=== PATIENT | male | born 1945 | race Two or more races ===

== ENCOUNTER 2020-08-03 07:11 | Inpatient (IN) | payer OTHER ==
[~2020-08-03] VITALS: Ht 162.6 cm; Wt 86.0 kg
[2020-08-03 07:51] LABS: Albumin 3.4 g/dL (3.4-5.0); Anion Gap 10 (5-15); Calcium 7.3 mg/dL (8.5-10.1); Carbon Dioxide 15 mmol/L (21-32); Chloride 113 mmol/L (98-107); Glucose 109 mg/dL (74-106); Potassium 5.5 mmol/L (3.5-5.1); Sodium 138 mmol/L (136-145)
[2020-08-03 07:56] LABS: Alanine Aminotransferase 40 U/L (16-61); Alkaline Phosphatase 73 U/L (45-117); Aspartate Aminotransferase 19 U/L (15-37); BUN/Creatinine Ratio 12.9; Basophils # (auto) 0 10 ^3/uL (0-0.2); Basophils % (auto) 0.6 % (0.0-2.0); Bilirubin, Total 0.2 mg/dL (0.2-1.0); Eosinophils # (auto) 0.1 10 ^3/uL (0-0.8); Eosinophils % (auto) 2.6 % (0.0-7.0); GFR African American 9 mL/min; GFR Non-African American 8 mL/min; Hematocrit 31.3 % (41.0-53.0); Hemoglobin 10.9 g/dL (13.5-17.5); Lymphocytes # (auto) 1.4 10 ^3/uL (0.4-5.4); Lymphocytes % (auto) 28.9 % (10.0-50.0); Mean Corpuscular Hemoglobin 30.8 pg (28.0-32.0); Mean Corpuscular Volume 88.2 fL (80.0-100.0); Monocytes # (auto) 0.3 10 ^3/uL (0-1.3); Monocytes % (auto) 5.7 % (0.0-12.0); Neutrophils # (auto) 3.1 10 ^3/uL (1.6-8.6); Neutrophils % (auto) 62.2 % (37.0-80.0); Nucleated Red Blood Cells % 0.1 %; Platelet Count (auto) 179 10^3/uL (140-450); Red Blood Cells 3.55 10^6/uL (4.5-5.90); Red Cell Distribution Width 15.3 % (11.8-14.3); Total Protein 6.6 g/dL (6.4-8.2)
[2020-08-03 08:11] LABS: Blood Urea Nitrogen 95 mg/dL (7-18)
[2020-08-03] MEDS ORDERED: SODIUM ZIRCONIUM CYCL 10 GM PAK PO ONE (09:15)
[2020-08-03] MEDS ORDERED: MORPHINE SULF INJ 2 MG/ML SYRINGE 1ML IV PRN (09:15)
[2020-08-03] MEDS ORDERED: ALBUTEROL SULF 2.5 MG/0.5ML(0.5%) NEB SOLN NEB ONE (09:15)
[2020-08-03] MEDS ORDERED: DEXTROSE (50%) 50ML SYRG IV ONE (09:15)
[2020-08-03] MEDS ORDERED: InsuLIN REG 1unit/0.01ml Soln (100units/ml) IV ONE (09:15)
[2020-08-03] MEDS ORDERED: CALCIUM GLUC 1,000mg/50ml-NS 50 ML IV ONE (09:15)
[2020-08-03] MEDS ORDERED: FUROSEMIDE 20 MG/2 ML VIAL IV ONE (09:15)
[2020-08-03] MEDS ORDERED: SODIUM BICARBONATE 8.4% INJ 50ML SYRINGE IV ONE (09:15)
[2020-08-03] MEDS ORDERED: NITROGLYCERIN 0.4 MG SL TAB SL PRN (09:15)
[2020-08-03] MEDS ORDERED: ACETAMINOPHEN 500 MG TAB PO PRN (09:30)
[2020-08-03] MEDS ORDERED: hydrALAZINE HCL 20 MG/ML VL IV ONE (09:30)
[2020-08-03] MEDS ORDERED: DEXTROSE (50%) 50ML SYRG IV PRN (09:30)
[2020-08-03] MEDS ORDERED: hydrALAZINE HCL 20 MG/ML VL IV PRN (09:30)
[2020-08-03] MEDS ORDERED: TEMAZEPAM 15 MG CAP PO PRN (09:30)
[2020-08-03] MEDS: SODIUM CHLORIDE 0.9% 1,000 ML IV SCH ×2 (09:54→18:11)
[2020-08-03] MEDS ORDERED: FAMOTIDINE 20 MG TAB PO SCH ×2 (10:00)
[2020-08-03] MEDS: MORPHINE SULF INJ 2 MG/ML SYRINGE 1ML IV PRN (10:04)
[2020-08-03] MEDS: ONDANSETRON HCL 4 MG/2 ML VIAL IV PRN ×2 (10:04→21:27)
[2020-08-03 10:19] LABS: Urine Bacteria NONE SEEN /hpf (None Seen); Urine Blood 2+ /uL (Negative); Urine Hyaline Cast FEW /lpf (0 - 2); Urine Specific Gravity 1.013 (1.001-1.035); Urine WBC 1 /hpf (0 - 3)
[2020-08-03 11:32] LABS: Calcium 7.7 mg/dL (8.5-10.1)
[2020-08-03 11:34] LABS: BUN/Creatinine Ratio 12.3
[2020-08-03] MEDS ORDERED: ENOXAPARIN SOD 80 MG/0.8ML SYRINGE SC ONE (11:45)
[2020-08-03] MEDS ORDERED: ASPirin 81 mg TAB PO ONE (11:45)
[2020-08-03] MEDS: ACCU-CHEK COMFORT CURVE STRIP VI SCH ×3 (11:47→22:52)
[2020-08-03] MEDS ORDERED: NITROGLYCERIN 0.2MG/HR TOPICAL PATCH TD ONE (13:30)
[2020-08-03] MEDS: traMADol HCL 50 MG TAB PO PRN (15:08)
[2020-08-03 16:46] VITALS: BP 185/74
[2020-08-03 17:00] VITALS: BP 185/74
[2020-08-03] MEDS ORDERED: LEV88T PO (17:01)
[2020-08-03] MEDS ORDERED: SODI650T PO (17:01)
[2020-08-03] MEDS ORDERED: TERA5CAP PO (17:01)
[2020-08-03] MEDS ORDERED: PITA4TAB PO (17:01)
[2020-08-03] MEDS ORDERED: ISOS1TAB37 PO (17:01)
[2020-08-03] MEDS ORDERED: LOSA-69 PO (17:01)
[2020-08-03] MEDS ORDERED: NIFE90TA49 (17:01)
[2020-08-03] MEDS ORDERED: ASPI-231 PO (17:06)
[2020-08-03] MEDS: ISOSORBIDE DINITRATE 10 MG TAB PO SCH (17:38)
[2020-08-03] MEDS ORDERED: hydrALAZINE HCL 25 MG TAB PO PRN (17:45)
[2020-08-03] MEDS: ATORVASTATIN 20 MG TAB PO SCH (21:27)
[2020-08-03] MEDS: METOPROLOL TARTRATE 50 MG TAB PO SCH (21:28)
[2020-08-03 22:00] VITALS: BP 185/67
[2020-08-03] MEDS ORDERED: METOPROLOL TARTRATE 25 MG TAB PO SCH (22:00)
[2020-08-03 22:34] LABS: Protein, Urine 440.6 mg/dL (0.0-11.9)
[2020-08-04] MEDS: hydrALAZINE HCL 20 MG/ML VL IV PRN ×3 (02:34→17:42)
[2020-08-04 05:00] VITALS: BP 181/72
[2020-08-04] MEDS: ONDANSETRON HCL 4 MG/2 ML VIAL IV PRN ×2 (05:28→10:04)
[2020-08-04] MEDS: ISOSORBIDE DINITRATE 10 MG TAB PO SCH ×3 (05:30→17:42)
[2020-08-04] MEDS: SODIUM CHLORIDE 0.9% 1,000 ML IV SCH ×2 (05:30→15:30)
[2020-08-04 06:22] LABS: Basophils # (auto) 0 10 ^3/uL (0-0.2); Basophils % (auto) 0.2 % (0.0-2.0); Eosinophils # (auto) 0.1 10 ^3/uL (0-0.8); Hematocrit 30.9 % (41.0-53.0); Hemoglobin 10.5 g/dL (13.5-17.5); Lymphocytes # (auto) 0.9 10 ^3/uL (0.4-5.4); Lymphocytes % (auto) 17.4 % (10.0-50.0); Mean Corpuscular Hemoglobin 29.9 pg (28.0-32.0); Mean Corpuscular Volume 88.1 fL (80.0-100.0); Monocytes # (auto) 0.3 10 ^3/uL (0-1.3); Monocytes % (auto) 5.9 % (0.0-12.0); Neutrophils % (auto) 75.5 % (37.0-80.0); Nucleated Red Blood Cells % 0.1 %; Platelet Count (auto) 186 10^3/uL (140-450); Red Cell Distribution Width 15.7 % (11.8-14.3); White Blood Cell 5.3 10^3/uL (4.4-10.8)
[2020-08-04] MEDS: ACCU-CHEK COMFORT CURVE STRIP VI SCH ×4 (06:40→22:26)
[2020-08-04 07:00] LABS: Albumin 3.1 g/dL (3.4-5.0); Calcium 7.8 mg/dL (8.5-10.1)
[2020-08-04 07:03] LABS: BUN/Creatinine Ratio 12.6; Bilirubin, Total 0.2 mg/dL (0.2-1.0); Phosphorus 6.3 mg/dL (2.5-4.90); Total Protein 6.2 g/dL (6.4-8.2)
[2020-08-04] MEDS: MORPHINE SULF INJ 2 MG/ML SYRINGE 1ML IV PRN ×2 (07:05→18:30)
[2020-08-04 08:00] VITALS: BP 181/72
[2020-08-04 09:00] VITALS: BP 154/74
[2020-08-04] MEDS: FAMOTIDINE 20 MG TAB PO SCH (09:45)
[2020-08-04] MEDS: ASPirin 81 mg TAB PO SCH (09:45)
[2020-08-04] MEDS: METOPROLOL TARTRATE 50 MG TAB PO SCH ×2 (09:46→22:19)
[2020-08-04] MEDS: PANTOPRAZOLE 40 MG TAB PO SCH (09:46)
[2020-08-04] MEDS: NITROGLYCERIN 0.2MG/HR TOPICAL PATCH TD SCH (09:47)
[2020-08-04] MEDS ORDERED: ENOXAPARIN SOD 80 MG/0.8ML SYRINGE SC SCH (10:00)
[2020-08-04] MEDS ORDERED: OPTISON 3ml Vial for INJ IV ONE ×2 (11:30→11:31)
[2020-08-04 13:00] VITALS: BP 199/81
[2020-08-04 16:38] VITALS: BP 176/74
[2020-08-04 22:00] VITALS: BP 167/72
[2020-08-04] MEDS: ATORVASTATIN 20 MG TAB PO SCH (22:20)
[2020-08-04] MEDS ORDERED: MILK OF MAGNESIA 30ML SUSP PO PRN (22:45)
[2020-08-05] MEDS: ONDANSETRON HCL 4 MG/2 ML VIAL IV PRN
[2020-08-05] MEDS: hydrALAZINE HCL 20 MG/ML VL IV PRN ×2 (00:24→06:31)
[2020-08-05] MEDS: SODIUM CHLORIDE 0.9% 1,000 ML IV SCH (01:54)
[2020-08-05 05:00] VITALS: BP 188/76
[2020-08-05 05:26] LABS: Basophils # (auto) 0 10 ^3/uL (0-0.2); Basophils % (auto) 0.3 % (0.0-2.0); Eosinophils # (auto) 0.1 10 ^3/uL (0-0.8); Eosinophils % (auto) 1.3 % (0.0-7.0); Hematocrit 29.4 % (41.0-53.0); Hemoglobin 10.1 g/dL (13.5-17.5); Lymphocytes # (auto) 1.1 10 ^3/uL (0.4-5.4); Mean Corpuscular Hemoglobin 30.1 pg (28.0-32.0); Mean Corpuscular Hgb Conc. 34.4 g/dL (32.0-36.0); Mean Corpuscular Volume 87.5 fL (80.0-100.0); Monocytes # (auto) 0.4 10 ^3/uL (0-1.3); Monocytes % (auto) 7.2 % (0.0-12.0); Neutrophils # (auto) 3.4 10 ^3/uL (1.6-8.6); Neutrophils % (auto) 69.2 % (37.0-80.0); Platelet Count (auto) 179 10^3/uL (140-450); Red Blood Cells 3.36 10^6/uL (4.5-5.90); Red Cell Distribution Width 15.7 % (11.8-14.3); White Blood Cell 4.9 10^3/uL (4.4-10.8)
[2020-08-05 05:44] LABS: Calcium 7.5 mg/dL (8.5-10.1); Potassium 4.8 mmol/L (3.5-5.1)
[2020-08-05 05:47] LABS: BUN/Creatinine Ratio 9.5
[2020-08-05] MEDS: ISOSORBIDE DINITRATE 10 MG TAB PO SCH ×3 (06:29→17:32)
[2020-08-05] MEDS: ACCU-CHEK COMFORT CURVE STRIP VI SCH ×4 (06:35→22:14)
[2020-08-05 09:00] VITALS: BP 158/77
[2020-08-05] MEDS: ASPirin 81 mg TAB PO SCH (10:15)
[2020-08-05] MEDS: METOPROLOL TARTRATE 50 MG TAB PO SCH ×2 (10:15→22:12)
[2020-08-05] MEDS: CLOPIDOGREL BISULFATE 75 MG TAB PO SCH (10:17)
[2020-08-05] MEDS: PANTOPRAZOLE 40 MG TAB PO SCH (10:17)
[2020-08-05] MEDS: NITROGLYCERIN 0.2MG/HR TOPICAL PATCH TD SCH (10:18)
[2020-08-05 16:51] VITALS: BP 160/67
[2020-08-05 22:00] VITALS: BP 156/72
[2020-08-05] MEDS: ATORVASTATIN 20 MG TAB PO SCH (22:11)
[2020-08-06 05:00] VITALS: BP 200/79
[2020-08-06] MEDS: hydrALAZINE HCL 20 MG/ML VL IV PRN (05:22)
[2020-08-06] MEDS: ISOSORBIDE DINITRATE 10 MG TAB PO SCH ×3 (06:45→17:42)
[2020-08-06] MEDS: ACCU-CHEK COMFORT CURVE STRIP VI SCH ×4 (07:00→21:26)
[2020-08-06] MEDS: ONDANSETRON HCL 4 MG/2 ML VIAL IV PRN (07:07)
[2020-08-06] MEDS: traMADol HCL 50 MG TAB PO PRN (07:48)
[2020-08-06 09:00] VITALS: BP 176/74
[2020-08-06] MEDS: MORPHINE SULF INJ 2 MG/ML SYRINGE 1ML IV PRN (11:30)
[2020-08-06] MEDS ORDERED: SODIUM CHL 0.9% 1000 ML BAG XX ONE (11:30)
[2020-08-06] MEDS ORDERED: ATOR20TA50 PO (11:38)
[2020-08-06] MEDS ORDERED: CLOP75TA28 PO (11:38)
[2020-08-06] MEDS: FAMOTIDINE 20 MG TAB PO SCH (12:36)
[2020-08-06] MEDS: ASPirin 81 mg TAB PO SCH (12:36)
[2020-08-06] MEDS: METOPROLOL TARTRATE 50 MG TAB PO SCH ×2 (12:36→22:00)
[2020-08-06] MEDS: CLOPIDOGREL BISULFATE 75 MG TAB PO SCH (12:37)
[2020-08-06] MEDS: PANTOPRAZOLE 40 MG TAB PO SCH (12:37)
[2020-08-06] MEDS: NITROGLYCERIN 0.2MG/HR TOPICAL PATCH TD SCH (12:38)
[2020-08-06 13:00] VITALS: BP 147/69
[2020-08-06 15:08] LABS: BUN/Creatinine Ratio 8.8; Calcium 7.8 mg/dL (8.5-10.1); Potassium 4.6 mmol/L (3.5-5.1)
[2020-08-06 17:00] VITALS: BP 145/72
[2020-08-06 17:15] LABS: Hepatitis B Core IgM Negative
[2020-08-06 17:16] LABS: Hepatitis A Ab IgM Negative; Hepatitis C Antibody Negative (Negative)
[2020-08-06 17:20] LABS: Hepatitis B Surface Antigen Negative (Negative)
[2020-08-06] MEDS ORDERED: EPOETIN ALFA-EPBX 4,000 UNIT/ML VIAL SC ONE (21:00)
[2020-08-06] MEDS: ATORVASTATIN 20 MG TAB PO SCH (21:26)
[2020-08-06 22:00] VITALS: BP 179/74
[2020-08-06] MEDS ORDERED: hydrALAZINE HCL 20 MG/ML VL IV ONE (23:15)
[2020-08-07] MEDS: ONDANSETRON HCL 4 MG/2 ML VIAL IV PRN (03:41)
[2020-08-07 05:00] VITALS: BP 162/69
[2020-08-07] MEDS: ISOSORBIDE DINITRATE 10 MG TAB PO SCH ×2 (05:58→12:10)
[2020-08-07] MEDS: ACCU-CHEK COMFORT CURVE STRIP VI SCH ×2 (06:38→11:30)
[2020-08-07 09:07] VITALS: BP 145/70
[2020-08-07] MEDS: METOPROLOL TARTRATE 50 MG TAB PO SCH ×2 (10:00→10:09)
[2020-08-07] MEDS: PANTOPRAZOLE 40 MG TAB PO SCH (10:07)
[2020-08-07] MEDS: ASPirin 81 mg TAB PO SCH (10:07)
[2020-08-07] MEDS: CLOPIDOGREL BISULFATE 75 MG TAB PO SCH (10:07)
[2020-08-07] MEDS: NITROGLYCERIN 0.2MG/HR TOPICAL PATCH TD SCH (10:08)
[2020-08-07 13:00] VITALS: BP 181/77
[2020-08-08] MEDS ORDERED: METOPROLOL TARTRATE 50 MG TAB PO SCH (10:00)
== END 2020-08-07 15:40 | disposition home or self-care (01) | DRG 640 ==
LOC: ER 07:11 → TELE 09:14 → TELE-WESTW 16:20
PROVIDERS: ADMIT Internal Medicine; ATTEND Internal Medicine Pulmonary Disease
PROC: 5A1D70Z Performance of Urinary Filtration, Intermittent, Less than 6 Hours Per Day (ICD-10-PCS; 2020-08-04)
PROC: 5A1D70Z Performance of Urinary Filtration, Intermittent, Less than 6 Hours Per Day (ICD-10-PCS; principal; 2020-08-06)
DX: E87.5 Hyperkalemia (principal); N18.6 End stage renal disease; I25.110 Atherosclerotic heart disease of native coronary artery with unstable angina pectoris; I12.0 Hypertensive chronic kidney disease with stage 5 chronic kidney disease or end stage renal disease; N17.9 Acute kidney failure, unspecified; I16.0 Hypertensive urgency; E78.5 Hyperlipidemia, unspecified; D63.1 Anemia in chronic kidney disease; Z68.29 Body mass index [BMI] 29.0-29.9, adult; E11.22 Type 2 diabetes mellitus with diabetic chronic kidney disease; G89.29 Other chronic pain; E66.9 Obesity, unspecified; N40.0 Benign prostatic hyperplasia without lower urinary tract symptoms; Z82.49 Family history of ischemic heart disease and other diseases of the circulatory system; Z83.3 Family history of diabetes mellitus; Z91.15 Patient's noncompliance with renal dialysis; Z95.5 Presence of coronary angioplasty implant and graft; Z99.2 Dependence on renal dialysis; Z20.822 Contact with and (suspected) exposure to COVID-19; M25.552 Pain in left hip
CPT/HCPCS: 36415; 71045; 73700; 74176; 76775; 80048; 80053; 80074; 81001; 82550; 82570; 82962; 83036; 83880; 84100; 84132; 84156; 84300; 84443; 84484; 85025; 85379; 86141; 87426; 93005; 93306; 93971; 94640; 96361; 96365; 96372; 96375; G0378; J1815; J2405; Q9956

== ENCOUNTER 2021-12-23 09:07 | Inpatient (IN) | payer OTHER ==
[~2021-12-23] VITALS: Ht 162.6 cm; Wt 78.5 kg
[~2021-12-23 09:07] MED LIST: ASPI1TAB20 PO; ATOR20TA50 PO; CLOP75TA28 PO; ISOS1TAB37 PO; LEV88T PO; LOSA-69 PO; NIFE90TA49; PITA4TAB PO; SODI650T PO; TERA5CAP2 PO
[2021-12-23 09:31] LABS: Basophils # (auto) 0 10 ^3/uL (0-0.2); Basophils % (auto) 0.6 % (0.0-2.0); Eosinophils # (auto) 0.1 10 ^3/uL (0-0.8); Eosinophils % (auto) 2.7 % (0.0-7.0); Hemoglobin 9.3 g/dL (13.5-17.5); Lymphocytes # (auto) 1.4 10 ^3/uL (0.4-5.4); Mean Corpuscular Hemoglobin 29.4 pg (28.0-32.0); Mean Corpuscular Hgb Conc. 33.1 g/dL (32.0-36.0); Mean Corpuscular Volume 88.9 fL (80.0-100.0); Monocytes # (auto) 0.3 10 ^3/uL (0-1.3); Monocytes % (auto) 6.1 % (0.0-12.0); Neutrophils # (auto) 2.7 10 ^3/uL (1.6-8.6); Neutrophils % (auto) 59.6 % (37.0-80.0); Red Blood Cells 3.15 10^6/uL (4.5-5.90); Red Cell Distribution Width 15.5 % (11.8-14.3); White Blood Cell 4.5 10^3/uL (4.4-10.8)
[2021-12-23 09:52] LABS: Albumin 3.4 g/dL (3.4-5.0); Calcium 7.6 mg/dL (8.5-10.1); Potassium 5.5 mmol/L (3.5-5.1)
[2021-12-23 09:56] LABS: BUN/Creatinine Ratio 11.8; Bilirubin, Total 0.4 mg/dL (0.2-1.0); Total Protein 5.8 g/dL (6.4-8.2)
[2021-12-23] MEDS ORDERED: ASPirin 81 mg TAB PO ONE (11:15)
[2021-12-23] MEDS ORDERED: MORPHINE SULFATE INJ 2 MG/ml SYRG IV ONE (11:15)
[2021-12-23] MEDS ORDERED: InsuLIN REG 1unit/0.01ml Soln (100units/ml) IV ONE (14:00)
[2021-12-23] MEDS ORDERED: DEXTROSE (50%) 50ML SYRG IV ONE (14:00)
[2021-12-23] MEDS ORDERED: ALBUTEROL SULF 2.5 MG/0.5ML(0.5%) NEB SOLN NEB ONE (14:00)
[2021-12-23] MEDS ORDERED: CALCIUM GLUC 1,000mg/50ml-NS 50 ML IV ONE (14:00)
[2021-12-23] MEDS ORDERED: ACETAMINOPHEN 325 MG TAB PO PRN (14:30)
[2021-12-23] MEDS ORDERED: NITROGLYCERIN 0.4 MG SL TAB SL PRN (14:30)
[2021-12-23] MEDS ORDERED: PANTOPRAZOLE 40 MG/10 ML VIAL INJ IV ONE (14:30)
[2021-12-23] MEDS: MORPHINE SULFATE INJ 2 MG/ml SYRG IV PRN ×2 (15:10→17:22)
[2021-12-23] MEDS ORDERED: ONDANSETRON HCL 4 MG/2 ML VIAL IV ONE (16:00)
[2021-12-23 17:06] LABS: Cholesterol 66 mg/dL (< 200)
[2021-12-23 17:09] LABS: HDL Cholesterol 38 mg/dL (40-59); LDL Cholesterol 24 mg/dL (< 100); Triglycerides 97 mg/dL (< 150)
[2021-12-23] MEDS ORDERED: SODIUM BICARBONATE 50ML VIAL 150 ML in D5W 5% 1,000 ML IV SCH (17:15)
[2021-12-23] MEDS ORDERED: SODIUM BICARBONATE 8.4 % INJ 50ML VIAL IV ONE (17:15)
[2021-12-23] MEDS: SODIUM BICARBONATE 50ML VIAL 150 ML in D5W 5% 1,000 ML IV SCH (19:03)
[2021-12-23 19:13] LABS: Urine Bacteria NONE SEEN /hpf (None Seen); Urine Blood 1+ /uL (Negative); Urine Specific Gravity 1.011 (1.001-1.035); Urine WBC 1 /hpf (0 - 3)
[2021-12-23 21:44] VITALS: BP 154/54
[2021-12-23] MEDS: ATORVASTATIN 20 MG TAB PO SCH (22:09)
[2021-12-23] MEDS: HEPARIN SODIUM (PORCINE) 5000 UNITS/ML 1ML VIAL SC SCH (22:30)
[2021-12-24] MEDS: SODIUM BICARBONATE 50ML VIAL 150 ML in D5W 5% 1,000 ML IV SCH (04:52)
[2021-12-24 05:00] VITALS: BP 176/66
[2021-12-24 06:05] LABS: Basophils # (auto) 0 10 ^3/uL (0-0.2); Basophils % (auto) 0.4 % (0.0-2.0); Eosinophils # (auto) 0.1 10 ^3/uL (0-0.8); Eosinophils % (auto) 1.8 % (0.0-7.0); Hematocrit 28.1 % (41.0-53.0); Hemoglobin 9.6 g/dL (13.5-17.5); Lymphocytes # (auto) 0.9 10 ^3/uL (0.4-5.4); Lymphocytes % (auto) 21.6 % (10.0-50.0); Mean Corpuscular Hemoglobin 29.7 pg (28.0-32.0); Mean Corpuscular Hgb Conc. 34.1 g/dL (32.0-36.0); Mean Corpuscular Volume 87.1 fL (80.0-100.0); Monocytes # (auto) 0.3 10 ^3/uL (0-1.3); Monocytes % (auto) 7.2 % (0.0-12.0); Neutrophils # (auto) 2.9 10 ^3/uL (1.6-8.6); Nucleated Red Blood Cells % 0.1 %; Red Blood Cells 3.22 10^6/uL (4.5-5.90); Red Cell Distribution Width 15.6 % (11.8-14.3); White Blood Cell 4.2 10^3/uL (4.4-10.8)
[2021-12-24 06:27] LABS: Albumin 3.4 g/dL (3.4-5.0); Potassium 4.8 mmol/L (3.5-5.1)
[2021-12-24 06:29] LABS: BUN/Creatinine Ratio 10.1
[2021-12-24 06:31] LABS: Bilirubin, Total 0.4 mg/dL (0.2-1.0); Total Protein 5.7 g/dL (6.4-8.2)
[2021-12-24] MEDS: cloNIDine HCL 0.1 MG TAB PO PRN ×2 (06:31→22:49)
[2021-12-24 08:00] VITALS: BP 221/83
[2021-12-24] MEDS: HEPARIN SODIUM (PORCINE) 5000 UNITS/ML 1ML VIAL SC SCH ×2 (09:22→22:51)
[2021-12-24] MEDS: ASPirin 81 mg TAB PO SCH (09:53)
[2021-12-24] MEDS ORDERED: ENOXAPARIN SOD 40 MG/0.4 ML SYRINGE SC SCH (10:00)
[2021-12-24] MEDS ORDERED: PANTOPRAZOLE 40 MG/10 ML VIAL INJ IV SCH (10:00)
[2021-12-24] MEDS ORDERED: amLODIPine BESYLATE 5 MG TAB PO ONE (10:30)
[2021-12-24] MEDS ORDERED: ONDANSETRON HCL 4 MG/2 ML VIAL IV PRN (14:30)
[2021-12-24] MEDS ORDERED: EPOETIN ALFA-EPBX 10,000 UNIT/1ML VIAL SC ONE (21:00)
[2021-12-24 22:00] VITALS: BP 166/66
[2021-12-24] MEDS: ATORVASTATIN 20 MG TAB PO SCH (22:51)
[2021-12-25 05:00] VITALS: BP 165/91
[2021-12-25 06:32] LABS: Basophils # (auto) 0 10 ^3/uL (0-0.2); Basophils % (auto) 0.4 % (0.0-2.0); Eosinophils # (auto) 0.2 10 ^3/uL (0-0.8); Eosinophils % (auto) 3.2 % (0.0-7.0); Hematocrit 28.8 % (41.0-53.0); Hemoglobin 9.7 g/dL (13.5-17.5); Lymphocytes # (auto) 1.4 10 ^3/uL (0.4-5.4); Lymphocytes % (auto) 28.9 % (10.0-50.0); Mean Corpuscular Hemoglobin 29.6 pg (28.0-32.0); Mean Corpuscular Hgb Conc. 33.8 g/dL (32.0-36.0); Mean Corpuscular Volume 87.5 fL (80.0-100.0); Monocytes # (auto) 0.4 10 ^3/uL (0-1.3); Monocytes % (auto) 7.6 % (0.0-12.0); Neutrophils # (auto) 2.9 10 ^3/uL (1.6-8.6); Neutrophils % (auto) 59.9 % (37.0-80.0); Nucleated Red Blood Cells % 0.1 %; Red Blood Cells 3.29 10^6/uL (4.5-5.90); Red Cell Distribution Width 15.1 % (11.8-14.3); White Blood Cell 4.9 10^3/uL (4.4-10.8)
[2021-12-25 06:37] LABS: Calcium 7.3 mg/dL (8.5-10.1)
[2021-12-25 06:41] LABS: BUN/Creatinine Ratio 9.9; Bilirubin, Total 0.4 mg/dL (0.2-1.0); Phosphorus 5.4 mg/dL (2.5-4.90); Total Protein 5.4 g/dL (6.4-8.2)
[2021-12-25 06:49] LABS: Potassium 5.9 mmol/L (3.5-5.1)
[2021-12-25] MEDS ORDERED: SODIUM CHL 0.9% 1000 ML BAG XX ONE (07:00)
[2021-12-25 09:00] VITALS: BP_SYST 140; BP_SYST 185; BP_DIAS 68; BP_DIAS 92
[2021-12-25] MEDS: amLODIPine BESYLATE 5 MG TAB PO SCH (09:46)
[2021-12-25] MEDS: ASPirin 81 mg TAB PO SCH (09:46)
[2021-12-25] MEDS: HEPARIN SODIUM (PORCINE) 5000 UNITS/ML 1ML VIAL SC SCH ×2 (12:56→22:05)
[2021-12-25 13:00] VITALS: BP 174/90
[2021-12-25 17:00] VITALS: BP 183/68
[2021-12-25 22:00] VITALS: BP 187/71
[2021-12-25] MEDS: cloNIDine HCL 0.1 MG TAB PO PRN (22:03)
[2021-12-25] MEDS: ATORVASTATIN 20 MG TAB PO SCH (22:03)
[2021-12-26 05:00] VITALS: BP 192/64
[2021-12-26 05:04] LABS: Basophils # (auto) 0 10 ^3/uL (0-0.2); Basophils % (auto) 0.5 % (0.0-2.0); Eosinophils # (auto) 0.2 10 ^3/uL (0-0.8); Eosinophils % (auto) 3.2 % (0.0-7.0); Hematocrit 31.4 % (41.0-53.0); Hemoglobin 10.4 g/dL (13.5-17.5); Lymphocytes # (auto) 1.6 10 ^3/uL (0.4-5.4); Lymphocytes % (auto) 25.4 % (10.0-50.0); Mean Corpuscular Hemoglobin 29.3 pg (28.0-32.0); Mean Corpuscular Hgb Conc. 33.1 g/dL (32.0-36.0); Mean Corpuscular Volume 88.4 fL (80.0-100.0); Monocytes # (auto) 0.4 10 ^3/uL (0-1.3); Monocytes % (auto) 6.6 % (0.0-12.0); Neutrophils % (auto) 64.3 % (37.0-80.0); Red Blood Cells 3.55 10^6/uL (4.5-5.90); Red Cell Distribution Width 15.5 % (11.8-14.3); White Blood Cell 6.2 10^3/uL (4.4-10.8)
[2021-12-26] MEDS: cloNIDine HCL 0.1 MG TAB PO PRN (05:16)
[2021-12-26 05:23] LABS: Albumin 3.1 g/dL (3.4-5.0); Calcium 7.1 mg/dL (8.5-10.1)
[2021-12-26 05:26] LABS: BUN/Creatinine Ratio 8.4; Bilirubin, Total 0.4 mg/dL (0.2-1.0); Total Protein 5.5 g/dL (6.4-8.2)
[2021-12-26 05:35] LABS: Potassium 5.7 mmol/L (3.5-5.1)
[2021-12-26 08:55] VITALS: BP 174/63
[2021-12-26] MEDS: CALCIUM CHL 100MG/ML 1,000 MG in D5W 5% 100 ML IV ONE ×2 (09:00→15:41)
[2021-12-26] MEDS ORDERED: SODIUM BICARBONATE 8.4 % INJ 50ML VIAL IV ONE (09:00)
[2021-12-26] MEDS ORDERED: ATO40T PO (09:06)
[2021-12-26] MEDS ORDERED: AMLO-496 PO (09:06)
[2021-12-26] MEDS ORDERED: ASPI-498 PO (09:06)
[2021-12-26] MEDS ORDERED: CLON0.2T PO (09:06)
[2021-12-26] MEDS: ASPirin 81 mg TAB PO SCH (09:31)
[2021-12-26] MEDS: amLODIPine BESYLATE 5 MG TAB PO SCH (09:32)
[2021-12-26] MEDS: HEPARIN SODIUM (PORCINE) 5000 UNITS/ML 1ML VIAL SC SCH ×2 (09:32→21:50)
[2021-12-26 12:48] VITALS: BP_SYST 105; BP_SYST 131; BP_DIAS 60; BP_DIAS 62
[2021-12-26 16:54] VITALS: BP 157/60
[2021-12-26] MEDS: ATORVASTATIN 20 MG TAB PO SCH (21:49)
[2021-12-26 21:55] VITALS: BP 147/57
[2021-12-27 01:06] LABS: Basophils # (auto) 0 10 ^3/uL (0-0.2); Basophils % (auto) 0.5 % (0.0-2.0); Eosinophils # (auto) 0.2 10 ^3/uL (0-0.8); Hematocrit 25.6 % (41.0-53.0); Hemoglobin 8.7 g/dL (13.5-17.5); Lymphocytes # (auto) 1.5 10 ^3/uL (0.4-5.4); Lymphocytes % (auto) 29.3 % (10.0-50.0); Mean Corpuscular Hemoglobin 30.1 pg (28.0-32.0); Mean Corpuscular Volume 88.6 fL (80.0-100.0); Monocytes # (auto) 0.4 10 ^3/uL (0-1.3); Monocytes % (auto) 7.5 % (0.0-12.0); Neutrophils % (auto) 59.7 % (37.0-80.0); Red Blood Cells 2.89 10^6/uL (4.5-5.90); Red Cell Distribution Width 15.3 % (11.8-14.3); White Blood Cell 5.1 10^3/uL (4.4-10.8)
[2021-12-27 01:33] LABS: Calcium 6.5 mg/dL (8.5-10.1)
[2021-12-27 01:37] LABS: Albumin 2.9 g/dL (3.4-5.0); BUN/Creatinine Ratio 8.8; Bilirubin, Total 0.3 mg/dL (0.2-1.0)
[2021-12-27 01:48] LABS: Potassium 5.9 mmol/L (3.5-5.1)
[2021-12-27] MEDS ORDERED: SODIUM ZIRCONIUM CYCL 10 GM PAK PO ONE (02:45)
[2021-12-27 04:27] VITALS: BP 172/67
[2021-12-27] MEDS: cloNIDine HCL 0.1 MG TAB PO PRN (05:31)
[2021-12-27 08:53] VITALS: BP 169/79
[2021-12-27 09:28] VITALS: BP 164/55
[2021-12-27] MEDS: amLODIPine BESYLATE 5 MG TAB PO SCH (10:00)
[2021-12-27] MEDS: ASPirin 81 mg TAB PO SCH (10:17)
[2021-12-27] MEDS: HEPARIN SODIUM (PORCINE) 5000 UNITS/ML 1ML VIAL SC SCH (10:18)
[2021-12-27 10:53] LABS: BUN/Creatinine Ratio 8.8; Potassium 5.3 mmol/L (3.5-5.1)
[2021-12-27] MEDS ORDERED: SODIUM CHL 0.9% 1000 ML BAG XX ONE (11:15)
== END 2021-12-27 14:20 | disposition home or self-care (01) | DRG 280 ==
LOC: ER 09:07 → TELE 14:29 → TELE-CENTR 21:17
PROVIDERS: ADMIT Nurse Practitioner Family; ATTEND Family Medicine
PROC: 5A1D70Z Performance of Urinary Filtration, Intermittent, Less than 6 Hours Per Day (ICD-10-PCS; principal; 2021-12-23)
PROC: 5A1D70Z Performance of Urinary Filtration, Intermittent, Less than 6 Hours Per Day (ICD-10-PCS; 2021-12-25)
DX: R07.89 Other chest pain (principal); I21.A1 Myocardial infarction type 2; N18.6 End stage renal disease; I12.0 Hypertensive chronic kidney disease with stage 5 chronic kidney disease or end stage renal disease; I45.3 Trifascicular block; D63.8 Anemia in other chronic diseases classified elsewhere; E03.9 Hypothyroidism, unspecified; E11.22 Type 2 diabetes mellitus with diabetic chronic kidney disease; E11.51 Type 2 diabetes mellitus with diabetic peripheral angiopathy without gangrene; E66.9 Obesity, unspecified; E78.5 Hyperlipidemia, unspecified; E87.5 Hyperkalemia; I25.119 Atherosclerotic heart disease of native coronary artery with unspecified angina pectoris; Z20.822 Contact with and (suspected) exposure to COVID-19; I44.0 Atrioventricular block, first degree; Z79.02 Long term (current) use of antithrombotics/antiplatelets; Z91.199 Patient's noncompliance with other medical treatment and regimen due to unspecified reason; Z98.61 Coronary angioplasty status; Z99.2 Dependence on renal dialysis; Z82.49 Family history of ischemic heart disease and other diseases of the circulatory system; Z83.3 Family history of diabetes mellitus; Z79.84 Long term (current) use of oral hypoglycemic drugs; Z79.82 Long term (current) use of aspirin; Z68.29 Body mass index [BMI] 29.0-29.9, adult
CPT/HCPCS: 36415; 71045; 80048; 80053; 80061; 81001; 82306; 82962; 83036; 83540; 83550; 83735; 83880; 83970; 84100; 84443; 84484; 85025; 87340; 87426; 90935; 93005; 93306; 94640; 96365; 96375; 99291; C9113; G0378; J1815; J2405; J7060

== ENCOUNTER 2022-01-26 12:07 | Inpatient (IN) | payer OTHER ==
[~2022-01-26] VITALS: Ht 162.6 cm; Wt 84.7 kg
[~2022-01-26 12:07] MED LIST changes: +AMLO-496 PO; +ASPI-498 PO; +ATO40T PO; +CLON0.2T PO
[2022-01-26] MEDS ORDERED: FUROSEMIDE 40 MG/4 ML VIAL IV ONE (12:45)
[2022-01-26 13:43] LABS: Basophils # (auto) 0 10 ^3/uL (0-0.2); Basophils % (auto) 0.6 % (0.0-2.0); Eosinophils # (auto) 0.1 10 ^3/uL (0-0.8); Hemoglobin 9.1 g/dL (13.5-17.5); Lymphocytes # (auto) 1.4 10 ^3/uL (0.4-5.4); Lymphocytes % (auto) 18.9 % (10.0-50.0); Mean Corpuscular Hgb Conc. 33.7 g/dL (32.0-36.0); Monocytes # (auto) 0.5 10 ^3/uL (0-1.3); Monocytes % (auto) 7.3 % (0.0-12.0); Neutrophils # (auto) 5.3 10 ^3/uL (1.6-8.6); Neutrophils % (auto) 71.2 % (37.0-80.0); Nucleated Red Blood Cells % 0.1 %; Red Blood Cells 3.03 10^6/uL (4.5-5.90); Red Cell Distribution Width 16.4 % (11.8-14.3); White Blood Cell 7.4 10^3/uL (4.4-10.8)
[2022-01-26 13:46] LABS: Albumin 3.1 g/dL (3.4-5.0); Calcium 7.9 mg/dL (8.5-10.1); Magnesium 2.2 mg/dL (1.6-2.6); Potassium 4.4 mmol/L (3.5-5.1)
[2022-01-26 13:50] LABS: BUN/Creatinine Ratio 12.6; Bilirubin, Total 0.4 mg/dL (0.2-1.0); Total Protein 5.9 g/dL (6.4-8.2)
[2022-01-26] MEDS ORDERED: DOCUSATE SOD 100 MG CAP PO PRN (15:15)
[2022-01-26] MEDS ORDERED: MORPHINE SULFATE INJ 2 MG/ml SYRG IV PRN (15:15)
[2022-01-26] MEDS ORDERED: DEXTROSE (50%) 50ML SYRG IV PRN (15:15)
[2022-01-26] MEDS ORDERED: NITROGLYCERIN 0.4 MG SL TAB SL PRN (15:15)
[2022-01-26] MEDS ORDERED: ACETAMINOPHEN 325 MG TAB PO PRN (15:15)
[2022-01-26] MEDS: ACCU-CHEK COMFORT CURVE STRIP VI SCH ×2 (18:00→22:12)
[2022-01-26] MEDS: InsuLIN REG 1unit/0.01ml Soln (100units/ml) SC SCH ×2 (18:01→22:00)
[2022-01-26] MEDS: FUROSEMIDE 40 MG/4 ML VIAL IV SCH (18:19)
[2022-01-26] MEDS: ALBUTEROL SULF 2.5 MG/0.5ML(0.5%) NEB SOLN NEB SCH (18:49)
[2022-01-26] MEDS: IPRATROPIUM BROM 0.5 MG/2.5ML INH SOL NEB SCH (18:49)
[2022-01-26 19:00] VITALS: BP 186/80
[2022-01-26] MEDS: ONDANSETRON HCL 4 MG/2 ML VIAL IV PRN (19:49)
[2022-01-26 20:29] LABS: Urine Bacteria NONE SEEN /hpf (None Seen); Urine Blood 1+ /uL (Negative); Urine Specific Gravity 1.005 (1.001-1.035); Urine WBC <1 /hpf (0 - 3)
[2022-01-26] MEDS: ISOSORBIDE DINITRATE 30 MG PO SCH (22:00)
[2022-01-26] MEDS ORDERED: LOSARTAN POTASSIUM 25 MG TAB PO ONE (22:15)
[2022-01-26] MEDS: hydrALAZINE HCL 20 MG/ML VL IV PRN (22:42)
[2022-01-26] MEDS: HYDROcodone-ACET 5/325MG TAB PO PRN (22:42)
[2022-01-27] VITALS (8 sets, daily range): BP systolic 121–242; BP diastolic 45–118
[2022-01-27] MEDS ORDERED: MELATONIN 5 MG TAB PO ONE (01:15)
[2022-01-27] MEDS: ONDANSETRON HCL 4 MG/2 ML VIAL IV PRN ×2 (03:16→13:13)
[2022-01-27] MEDS: hydrALAZINE HCL 20 MG/ML VL IV PRN (04:58)
[2022-01-27] MEDS: ISOSORBIDE DINITRATE 30 MG PO SCH (06:00)
[2022-01-27 06:31] LABS: Basophils # (auto) 0 10 ^3/uL (0-0.2); Basophils % (auto) 0.1 % (0.0-2.0); Eosinophils # (auto) 0 10 ^3/uL (0-0.8); Eosinophils % (auto) 0.2 % (0.0-7.0); Hematocrit 27.8 % (41.0-53.0); Hemoglobin 9.4 g/dL (13.5-17.5); Lymphocytes # (auto) 0.5 10 ^3/uL (0.4-5.4); Mean Corpuscular Hemoglobin 30.7 pg (28.0-32.0); Mean Corpuscular Volume 90.5 fL (80.0-100.0); Monocytes # (auto) 0.4 10 ^3/uL (0-1.3); Monocytes % (auto) 5.7 % (0.0-12.0); Neutrophils # (auto) 6.8 10 ^3/uL (1.6-8.6); Red Blood Cells 3.07 10^6/uL (4.5-5.90); Red Cell Distribution Width 16.4 % (11.8-14.3); White Blood Cell 7.8 10^3/uL (4.4-10.8)
[2022-01-27] MEDS: FUROSEMIDE 40 MG/4 ML VIAL IV SCH (06:32)
[2022-01-27 06:44] LABS: BUN/Creatinine Ratio 12.5; Calcium 8.1 mg/dL (8.5-10.1); Potassium 4.9 mmol/L (3.5-5.1)
[2022-01-27] MEDS: LEVOTHYROXINE SODIUM 88 MCG TAB PO SCH (06:45)
[2022-01-27] MEDS: ACCU-CHEK COMFORT CURVE STRIP VI SCH ×4 (06:45→21:42)
[2022-01-27] MEDS: InsuLIN REG 1unit/0.01ml Soln (100units/ml) SC SCH ×4 (06:46→21:43)
[2022-01-27] MEDS: IPRATROPIUM BROM 0.5 MG/2.5ML INH SOL NEB SCH ×3 (07:21→19:24)
[2022-01-27] MEDS: ALBUTEROL SULF 2.5 MG/0.5ML(0.5%) NEB SOLN NEB SCH ×3 (07:21→19:24)
[2022-01-27] MEDS: PANTOPRAZOLE 40 MG/10 ML VIAL INJ IV SCH (09:52)
[2022-01-27] MEDS: amLODIPine BESYLATE 5 MG TAB PO SCH (09:53)
[2022-01-27] MEDS: ASPirin-EC 81 mg tab PO SCH (09:53)
[2022-01-27] MEDS: TERAZOSIN HCL 5 MG CAP PO SCH (09:54)
[2022-01-27] MEDS: LOSARTAN POTASSIUM 50 MG TAB PO SCH (09:54)
[2022-01-27] MEDS ORDERED: ATORVASTATIN CALCIUM 40 MG PO SCH (10:00)
[2022-01-27] MEDS ORDERED: cloNIDine HCL 0.1 MG TAB PO ONE (12:00)
[2022-01-27] MEDS ORDERED: TAMSULOSIN HYDROCHLORIDE 0.4 MG CAP PO ONE (13:15)
[2022-01-27] MEDS ORDERED: FUROSEMIDE 100 MG/10ML VIAL IV ONE (13:15)
[2022-01-27] MEDS: ISOSORBIDE DINITRATE 10 MG TAB PO SCH ×2 (14:50→21:42)
[2022-01-27] MEDS: ATORVASTATIN 20 MG TAB PO SCH (21:42)
[2022-01-28 05:00] VITALS: BP 143/62
[2022-01-28] MEDS: IPRATROPIUM BROM 0.5 MG/2.5ML INH SOL NEB SCH ×3 (06:00→18:00)
[2022-01-28] MEDS: ALBUTEROL SULF 2.5 MG/0.5ML(0.5%) NEB SOLN NEB SCH ×3 (06:00→18:00)
[2022-01-28] MEDS: ISOSORBIDE DINITRATE 10 MG TAB PO SCH ×3 (06:42→21:36)
[2022-01-28] MEDS: ACCU-CHEK COMFORT CURVE STRIP VI SCH ×4 (06:42→21:38)
[2022-01-28] MEDS: LEVOTHYROXINE SODIUM 88 MCG TAB PO SCH (06:42)
[2022-01-28] MEDS: InsuLIN REG 1unit/0.01ml Soln (100units/ml) SC SCH ×4 (06:50→21:38)
[2022-01-28 08:42] LABS: BUN/Creatinine Ratio 11.7; Calcium 8.1 mg/dL (8.5-10.1)
[2022-01-28 09:00] VITALS: BP 157/83
[2022-01-28] MEDS: LOSARTAN POTASSIUM 50 MG TAB PO SCH (10:00)
[2022-01-28] MEDS: TERAZOSIN HCL 5 MG CAP PO SCH (10:00)
[2022-01-28] MEDS: amLODIPine BESYLATE 5 MG TAB PO SCH (10:00)
[2022-01-28] MEDS: ASPirin-EC 81 mg tab PO SCH (10:32)
[2022-01-28] MEDS: HYDROcodone-ACET 5/325MG TAB PO PRN (10:32)
[2022-01-28] MEDS: PANTOPRAZOLE 40 MG/10 ML VIAL INJ IV SCH (10:32)
[2022-01-28 13:07] VITALS: BP 163/69
[2022-01-28] MEDS ORDERED: CEFTRIAXONE SODIUM 2 GM in D5W 5% 50 ML IV ONE (13:45)
[2022-01-28] MEDS ORDERED: TAMSULOSIN HYDROCHLORIDE 0.4 MG CAP PO ONE (13:45)
[2022-01-28] MEDS: TAMSULOSIN HYDROCHLORIDE 0.4 MG CAP PO SCH (16:36)
[2022-01-28] MEDS: ATORVASTATIN 20 MG TAB PO SCH (21:36)
[2022-01-28 22:00] VITALS: BP 173/77
[2022-01-28 22:48] VITALS: BP 166/71
[2022-01-28] MEDS: hydrALAZINE HCL 20 MG/ML VL IV PRN (22:48)
[2022-01-29] VITALS (7 sets, daily range): BP systolic 132–178; BP diastolic 68–79
[2022-01-29] MEDS: HYDROcodone-ACET 5/325MG TAB PO PRN (02:16)
[2022-01-29] MEDS: IPRATROPIUM BROM 0.5 MG/2.5ML INH SOL NEB SCH ×2 (06:00→12:00)
[2022-01-29] MEDS: ALBUTEROL SULF 2.5 MG/0.5ML(0.5%) NEB SOLN NEB SCH ×2 (06:00→12:00)
[2022-01-29] MEDS: ISOSORBIDE DINITRATE 10 MG TAB PO SCH ×3 (06:01→21:21)
[2022-01-29] MEDS: LEVOTHYROXINE SODIUM 88 MCG TAB PO SCH (06:01)
[2022-01-29] MEDS: ACCU-CHEK COMFORT CURVE STRIP VI SCH ×4 (06:02→21:24)
[2022-01-29] MEDS: InsuLIN REG 1unit/0.01ml Soln (100units/ml) SC SCH ×4 (06:02→21:24)
[2022-01-29] MEDS ORDERED: SODIUM CHL 0.9% 1000 ML BAG XX ONE (07:00)
[2022-01-29] MEDS: cefTRIAXone 1GM/50ML D5W 50 ML IV SCH (09:33)
[2022-01-29] MEDS: cloNIDine HCL 0.1 MG TAB PO PRN ×2 (13:03→23:57)
[2022-01-29] MEDS: LOSARTAN POTASSIUM 50 MG TAB PO SCH (13:04)
[2022-01-29] MEDS: ASPirin-EC 81 mg tab PO SCH (13:07)
[2022-01-29] MEDS: TAMSULOSIN HYDROCHLORIDE 0.4 MG CAP PO SCH (17:39)
[2022-01-29] MEDS ORDERED: diphenhdrAMINE HCL 50 MG/1 ML VL IV PRN (20:45)
[2022-01-29] MEDS ORDERED: EPOETIN ALFA-EPBX 10,000 UNIT/1ML VIAL SC ONE (21:00)
[2022-01-29] MEDS: ATORVASTATIN 20 MG TAB PO SCH (21:21)
[2022-01-30 05:00] VITALS: BP 159/72
[2022-01-30] MEDS: ISOSORBIDE DINITRATE 10 MG TAB PO SCH ×2 (05:12→15:10)
[2022-01-30] MEDS: LEVOTHYROXINE SODIUM 88 MCG TAB PO SCH ×2 (05:14→08:40)
[2022-01-30] MEDS: InsuLIN REG 1unit/0.01ml Soln (100units/ml) SC SCH ×2 (06:09→11:54)
[2022-01-30] MEDS: ACCU-CHEK COMFORT CURVE STRIP VI SCH ×2 (06:09→11:54)
[2022-01-30 08:00] VITALS: BP 171/75
[2022-01-30] MEDS: ASPirin-EC 81 mg tab PO SCH (08:40)
[2022-01-30] MEDS: LOSARTAN POTASSIUM 50 MG TAB PO SCH (08:41)
[2022-01-30] MEDS: cefTRIAXone 1GM/50ML D5W 50 ML IV SCH (08:42)
[2022-01-30 09:00] VITALS: BP 171/75
[2022-01-30] MEDS ORDERED: NIFEdipine ER 30 MG TAB PO ONE (09:15)
[2022-01-30] MEDS ORDERED: LOSARTAN POTASSIUM 50 MG TAB PO SCH (10:00)
[2022-01-30 13:00] VITALS: BP 168/84
[2022-01-30] MEDS ORDERED: SODI650T PO (14:52)
[2022-01-30] MEDS ORDERED: MET50T PO (14:52)
[2022-01-30] MEDS ORDERED: ATO40T PO (14:52)
[2022-01-30] MEDS ORDERED: LOSA-69 PO (14:52)
[2022-01-30] MEDS ORDERED: CLON0.2T PO (14:52)
[2022-01-30] MEDS ORDERED: CLOP75TA28 PO (14:52)
[2022-01-30] MEDS ORDERED: TAM04C PO (14:52)
[2022-01-30] MEDS ORDERED: ISOS1TAB37 PO (14:52)
[2022-01-30] MEDS ORDERED: ASPI1TAB20 PO (14:52)
[2022-01-30] MEDS ORDERED: LEV88T PO (14:52)
[2022-01-30 15:48] VITALS: BP 170/82
[2022-01-30 16:52] VITALS: BP 175/74
[2022-01-31] MEDS ORDERED: NIFEdipine ER 30 MG TAB PO SCH (10:00)
== END 2022-01-30 16:51 | disposition home health service (06) | DRG 291 ==
LOC: EDBD 12:07 → EDUNIT# 12:07 → ER 12:12 → TELE 15:12 → TELE-WESTW 23:09
PROVIDERS: ADMIT Nurse Practitioner Family; ATTEND Internal Medicine
PROC: 5A1D70Z Performance of Urinary Filtration, Intermittent, Less than 6 Hours Per Day (ICD-10-PCS; principal; 2022-01-30)
DX: I13.2 Hypertensive heart and chronic kidney disease with heart failure and with stage 5 chronic kidney disease, or end stage renal disease (principal); I50.33 Acute on chronic diastolic (congestive) heart failure; N18.6 End stage renal disease; J96.01 Acute respiratory failure with hypoxia; D63.1 Anemia in chronic kidney disease; E11.22 Type 2 diabetes mellitus with diabetic chronic kidney disease; E66.9 Obesity, unspecified; E78.5 Hyperlipidemia, unspecified; I25.10 Atherosclerotic heart disease of native coronary artery without angina pectoris; Z20.822 Contact with and (suspected) exposure to COVID-19; Z79.82 Long term (current) use of aspirin; Z82.49 Family history of ischemic heart disease and other diseases of the circulatory system; Z83.3 Family history of diabetes mellitus; Z86.73 Personal history of transient ischemic attack (TIA), and cerebral infarction without residual deficits; Z91.15 Patient's noncompliance with renal dialysis; Z95.1 Presence of aortocoronary bypass graft; Z99.2 Dependence on renal dialysis; Z79.899 Other long term (current) drug therapy; I25.2 Old myocardial infarction; Z90.49 Acquired absence of other specified parts of digestive tract
CPT/HCPCS: 36415; 71045; 80048; 80053; 81001; 82962; 83735; 83880; 84154; 84484; 85025; 87426; 90935; 93005; 94640; 96374; 96375; 97163; 99291; C9113; G0378; J0696; J1815; J2405; J7060

== ENCOUNTER → 2022-02-24 | Outpatient (CLI) | payer OTHER ==
[~2022-02-24] MED LIST changes: -ASPI-498 PO; -ATOR20TA50 PO; +MET50T PO; -NIFE90TA49; -PITA4TAB PO; +TAM04C PO; -TERA5CAP2 PO
[2022-02-24 07:53] LABS: Basophils # (auto) 0 10 ^3/uL (0-0.2); Basophils % (auto) 0.5 % (0.0-2.0); Eosinophils # (auto) 0.1 10 ^3/uL (0-0.8); Hematocrit 31.7 % (41.0-53.0); Hemoglobin 10.4 g/dL (13.5-17.5); Lymphocytes # (auto) 1.1 10 ^3/uL (0.4-5.4); Lymphocytes % (auto) 24.1 % (10.0-50.0); Mean Corpuscular Hemoglobin 29.6 pg (28.0-32.0); Mean Corpuscular Hgb Conc. 32.8 g/dL (32.0-36.0); Mean Corpuscular Volume 90.2 fL (80.0-100.0); Monocytes # (auto) 0.5 10 ^3/uL (0-1.3); Monocytes % (auto) 10.7 % (0.0-12.0); Neutrophils % (auto) 62.7 % (37.0-80.0); Nucleated Red Blood Cells % 0.1 %; Red Blood Cells 3.51 10^6/uL (4.5-5.90); Red Cell Distribution Width 19.3 % (11.8-14.3); White Blood Cell 4.8 10^3/uL (4.4-10.8)
[2022-02-24 08:32] LABS: Albumin 2.7 g/dL (3.4-5.0); Bilirubin, Direct 0.2 mg/dL (0-0.2); Bilirubin, Total 0.5 mg/dL (0.2-1.0); Total Protein 6.3 g/dL (6.4-8.2)
[2022-02-24 17:16] LABS: Urine Blood 1+ /uL (Negative)
== END | disposition home or self-care (01) ==
LOC: LAB 07:10
PROVIDERS: ATTEND Internal Medicine
DX: N18.6 End stage renal disease (principal); E78.5 Hyperlipidemia, unspecified; Z79.899 Other long term (current) drug therapy
CPT/HCPCS: 36415; 80061; 80076; 81001; 83036; 84439; 84443; 85025